=== PATIENT | female | born 1970 | race Caucasian/White ===

== ENCOUNTER → 2018-11-18 09:35 | Outpatient (CLI) | payer MEDICARE, MEDICAID, SELFPAY ==
--- NOTE | 2018-11-18 09:46 | XR_ITS ---
XR chest 2V HISTORY: Follow-up pneumonia ITS.REASON: S/P PNEUMONIA, COPD, HTN, EDEMA ORDERING PHYSICIAN: Torito Awan PATIENT AGE: 47 years COMPARISON: 04/21/2018 FINDINGS: The cardiomediastinal silhouette and pulmonary vascularity are within normal limits. There are atelectatic changes in the left lower lobe. The previously noted nodular opacity in the left upper lobe is not apparent on today's exam. There remains some atelectatic changes within the lingula. The right lung clear. Project over the right lower hemithorax. No acute bony findings. IMPRESSION: Chronic atelectatic or fibrotic changes in the lingula.
[2018-11-18 10:05] LABS: Basophils # 0.1 K/mm3 (0-0.2); Eosinophils # 0.2 K/mm3 (0.0-0.4); Eosinophils % 3.4 % (0.1-12.0); Hematocrit 39.4 % (37.0-47.0); Hemoglobin 12.3 g/dL (12.2-16.2); Lymphocytes # 2.5 K/mm3 (0.7-4.5); Lymphocytes % 42.4 % (10-50); Mean Corpuscular HGB Conc 31.4 g/dL (31.8-35.4); Mean Corpuscular Hemoglobin 27.6 pg (27.0-31.2); Mean Platelet Volume 7.5 fl (7.4-10.4); Monocytes # 0.4 K/mm3 (0.1-1.0); Monocytes % 6.7 % (1.7-9.3); Neutrophils # 2.8 K/mm3 (1.8-7.8); Neutrophils % 46.5 % (37.0-80.0); Platelet Count 298 K/mm3 (142-424); Red Blood Count 4.47 M/mm3 (4.20-5.40); White Blood Count 5.9 K/mm3 (4.8-10.8)
[2018-11-18 11:29] LABS: Alanine Aminotransferase 29 U/L (12-78); Albumin Level 3.7 gm/dL (3.4-5.0); Alkaline Phosphatase 116 U/L (46-116); Anion Gap 11.3 mEq/L (5-15); Aspartate Amino Transferase 37 U/L (15-37); Bilirubin,Total 0.4 mg/dL (0.2-1.0); Blood Urea Nitrogen 6 mg/dL (7-18); Calcium 9.2 mg/dL (8.5-10.1); Carbon Dioxide 30 mmol/L (21.0-32.0); Chloride 103 mmol/L (98-107); Chol/HDL Ratio 2.4 (1-3.5); Cholesterol 168 mg/dL (140-200); Creatinine,Serum 0.83 mg/dL (0.55-1.02); Estimated Glomerular Filt Rate 73 ml/min (>60); GFR (African American) 89 ML/MIN (>60); Globulin 3.8 gm/dl (1.3-3.2); Glucose 95 mg/dL (74-106); HDL Cholesterol 70 mg/dL (29-89); LDL Cholesterol 82 mg/dL (0-130); Potassium 4.3 mmoL/L (3.5-5.1); Sodium 140 mmol/L (136-145); Total Protein,Serum 7.5 gm/dL (6.4-8.2); Triglycerides 79 mg/dL (30-200); VLDL Cholesterol 16 mg/dL (0-40)
== END ==
PROVIDERS: PCP Internal Medicine; Visit Provider Internal Medicine
DX: J18.9 Pneumonia, unspecified organism (principal); J44.9 Chronic obstructive pulmonary disease, unspecified; I10 Essential (primary) hypertension; R60.9 Edema, unspecified; E78.5 Hyperlipidemia, unspecified; F17.210 Nicotine dependence, cigarettes, uncomplicated
CPT/HCPCS: 36415; 71046; 80053; 80061; 84443; 85025

== ENCOUNTER → 2018-11-21 09:26 | Outpatient (CLI) | payer MEDICARE, MEDICAID, SELFPAY | PROVIDERS: PCP Internal Medicine; Visit Provider Internal Medicine | DX: J44.9 Chronic obstructive pulmonary disease, unspecified (principal) | CPT/HCPCS: 94618 ==

== ENCOUNTER 2020-09-13 12:34 | Inpatient (IN) | payer MEDICARE, OTHER, SELFPAY ==
[2020-09-13] VITALS (23 sets, daily range): BP systolic 63–120; BP diastolic 38–97; PULSE 59–114; RESP 10–30; TEMP 36.4–37.3; O2SAT 84–99; BMI 38.7; BMI 42.3
--- NOTE | 2020-09-13 | ECG_ITS ---
APPROVED REPORT Exam: Resting ECG HR:101 bpm ECG Measurements Heart Rate 101 AXES HI 152 P 65 QRSd 92 QRS 45 QT 344 T 71 QTc 446 Conclusion Sinus tachycardia Otherwise normal ECG Electronically signed by : Chin Willard, 09/14/2020 22:01:24
--- NOTE | 2020-09-13 12:53 | XR_ITS ---
PROCEDURE: XR CHEST PORTABLE CLINICAL HISTORY: SOB COMPARISON: CR CXR CHEST(2 VIEWS-NOT PORTABLE) from 04/07/2014 CR CXR2V XR chest 2V from 04/21/2018 FINDINGS: The cardiomediastinal silhouette and pulmonary vascularity are within normal limits. Patchy density is present in both mid lower lung zones consistent with bilateral lower lobe pneumonia No acute bony abnormalities. Surgical clips noted overlying the right lower lung zone medially IMPRESSION: Bilateral lower lobe pneumonia. Dictated by: Edmond Keene MD 09/13/2020 13:33 Edmond Keene MD in [place] 09/13/2020 13:33
[2020-09-13 13:16] LABS: Basophils % 0.1 % (0.1-2.0); Eosinophils % 0.3 % (0.1-12.0); Hematocrit 38.4 % (37.0-47.0); Hemoglobin 12.6 g/dL (12.2-16.2); Lymphocytes # 1.6 K/mm3 (0.7-4.5); Lymphocytes % 11.6 % (10-50); Mean Corpuscular HGB Conc 32.8 g/dL (31.8-35.4); Mean Corpuscular Hemoglobin 28.7 pg (27.0-31.2); Mean Corpuscular Volume 87.4 fl (81-99); Mean Platelet Volume 9.7 fl (7.4-10.4); Monocytes # 0.5 K/mm3 (0.1-1.0); Monocytes % 4.1 % (1.7-9.3); Neutrophils # 11.1 K/mm3 (1.8-7.8); Neutrophils % 83.9 % (37.0-80.0); Platelet Count 191 K/mm3 (142-424); Red Blood Count 4.39 M/mm3 (4.20-5.40); Red Cell Distribution Width 14.8 % (11.5-17.5); White Blood Count 13.3 K/mm3 (4.8-10.8)
[2020-09-13 13:19] LABS: Lactic Acid 0.9 mmol/L (0.7-2.1); Sodium 128 mmol/L (136-145)
[2020-09-13 13:20] LABS: Blood Urea Nitrogen 50 mg/dl (7-17); Calcium 8.5 mg/dl (8.4-10.2); Carbon Dioxide 22 mmol/L (22.0-30.0); Chloride 95 mmol/L (98-107); Creatinine Clearance Estimated 22 mL/min (50-200); Estimated Glomerular Filt Rate 10 ml/min (>60); GFR (African American) 12 ML/MIN (>60); Glucose 95 mg/dl (74-100)
--- NOTE | 2020-09-13 13:26 | PC.NURSE ---
notified ER of critical creatinine
[2020-09-13 13:41] LABS: Troponin I < 0.01 ng/ml (0.00-0.034)
--- NOTE | 2020-09-13 13:48 | CT_ITS ---
PROCEDURE INFORMATION: Exam: CT Abdomen And Pelvis Without Contrast Exam date and time: 09/13/2020 1:48 PM Age: 49 years old Clinical indication: Abdominal pain; Generalized; Prior surgery; Additional info: Renal failure TECHNIQUE: Imaging protocol: Computed tomography of the abdomen and pelvis without contrast. Radiation optimization: All CT scans at this facility use at least one of these dose optimization techniques: automated exposure control; mA and/or kV adjustment per patient size (includes targeted exams where dose is matched to clinical indication); or iterative reconstruction. COMPARISON: No relevant prior studies available. FINDINGS: Lungs: There are ground-glass opacities in the visualized lung bases many of which demonstrate interlobular septal thickening. Liver: The unenhanced liver is unremarkable. Gallbladder and bile ducts: No ductal dilation. No radiopaque gallstones. Pancreas: Unremarkable. Spleen: No splenomegaly. Splenic densities likely represent calcified granulomas. Adrenal glands: No adrenal nodule. Kidneys and ureters: No hydronephrosis or calculi. Stomach and bowel: The unopacified bowel is unremarkable. No obstruction. Appendix: No evidence of appendicitis. Intraperitoneal space: No free air or fluid. No focal fluid collection. Vasculature: The abdominal aorta is normal in caliber. Lymph nodes: No lymphadenopathy. Urinary bladder: Unremarkable as visualized. Reproductive: Unremarkable as visualized. Bones/joints: No acute fracture. There are mild degenerative changes of the spine as well as posterior fixation hardware at L4-L5. Soft tissues: There is a small fat containing umbilical hernia. IMPRESSION: 1. No acute inflammatory process in the abdomen or pelvis. 2. Ground-glass opacities in the visualized lung bases with scattered areas of interlobular septal thickening. Imaging features can be seen with COVID-19 pneumonia, though are nonspecific and can occur with a variety of infectious and noninfectious processes. (Reference: Jose Angel) REFERENCES: Jose Angel Meyers, et al., Radiological Society of [place] Expert Consensus Statement on Reporting Chest CT Findings Related to COVID-19. Endorsed by the Society of Thoracic Radiology, the [place] [employer], and RSNA. Published July 02, 2019.
--- NOTE | 2020-09-13 13:57 | PC.NURSE ---
notified rad of ct order
[2020-09-13 14:00] LABS: ABG Base Excess -6.7 mmol/L (-2.4-2.3); ABG Oxygen Saturation 90 % (90-100); ABG PCO2 43.8 mmhg (35.0-45.0); ABG PH 7.28 mmol/L (7.35-7.45); ABG PO2 60.6 mmhg (80-100); ABG TCO2 21.4 mmhg (23-27)
[2020-09-13 14:01] LABS: Allen's Test Acceptable; Source Right Radial
[2020-09-13 14:02] LABS: Oxygen 3 LPM NC %
--- NOTE | 2020-09-13 14:02 | HMH.EDGENADL ---
ED Disposition Clinical Impression: Acute exacerbation of chronic obstructive airways disease, Septic shock Acute renal failure Qualifiers: Acute renal failure type: unspecified Qualified Code(s): N17.9 - Acute kidney failure, unspecified Bilateral pneumonia Qualifiers: Pneumonia type: due to unspecified organism Lung location: lower lobe of lung Qualified Code(s): J18.9 - Pneumonia, unspecified organism Disposition: Admitted As Inpatient Condition on Discharge: Critical Referrals: Torito Awan [Primary Care Provider] - - Critical Care Critical Care Time: Yes Attestation: On 09/13/20, the high probability of a clinically significant, sudden or life threatening deterioration of the following system(s) required my full and direct attention, intervention and personal management. The time I documented below is in addition to time spent performing reported procedures but includes the following listed in this critical care notation. Total Critical Care Time: 45 Vital system(s) involved:: Circulatory Failure, Metabolic Failure, Respiratory Failure, Renal Failure, Shock (Septic) My critical care processes included: Assessment & monitoring of V/S, Initial and Re-exams, Data Review/Interpretation, Coordinating Care, Medication Orders and management, Documentation Medical Decision Making - Medical Records Medical records reviewed: Yes: I reviewed the patient's medical records. - Durga Inquiry Pt receiving controlled substance: No Vital Signs: 09/13/20 12:35 09/13/20 13:30 09/13/20 13:32 Temperature 99.2 F Temperature Source Oral Pulse Rate 96 H 94 H Pulse Rate [Radial] 114 H Respiratory Rate 30 H 18 Blood Pressure 81/51 L 81/46 L Blood Pressure [Right Arm] 101/64 L Blood Pressure Mean [Right Arm] 76 Blood Pressure Source Blood Pressure Position Blood Pressure Position [Right Arm] Sitting 02 Sat by Pulse Oximetry 84 L 96 95 Oxygen Delivery Method Room Air Nasal Cannula Oxygen Flow Rate (LPM) 4 09/13/20 14:00 09/13/20 14:18 09/13/20 14:30 Temperature Temperature Source Pulse Rate 90 91 H 91 H Pulse Rate [Radial] Respiratory Rate 16 18 Blood Pressure 69/40 L 76/46 L 63/38 L Blood Pressure [Right Arm] Blood Pressure Mean [Right Arm] Blood Pressure Source Manual Cuff/ Auscultation Blood Pressure Position Blood Pressure Position [Right Arm] 02 Sat by Pulse Oximetry 93 L 94 L 93 L Oxygen Delivery Method Nasal Cannula Oxygen Flow Rate (LPM) 4 09/13/20 15:00 09/13/20 15:30 09/13/20 16:20 Temperature Temperature Source Pulse Rate 88 92 H 81 Pulse Rate [Radial] Respiratory Rate 20 18 16 Blood Pressure 81/41 L 112/97 H 93/57 L Blood Pressure [Right Arm] Blood Pressure Mean [Right Arm] Blood Pressure Source Blood Pressure Position Blood Pressure Position [Right Arm] 02 Sat by Pulse Oximetry 92 L 92 L 97 Oxygen Delivery Method Oxygen Flow Rate (LPM) 09/13/20 18:19 09/13/20 18:40 09/13/20 19:09 Temperature Temperature Source Pulse Rate 59 L 80 69 Pulse Rate [Radial] Respiratory Rate 18 Blood Pressure 100/53 L 104/63 L 117/60 Blood Pressure [Right Arm] Blood Pressure Mean [Right Arm] Blood Pressure Source Blood Pressure Position Sitting Sitting Blood Pressure Position [Right Arm] 02 Sat by Pulse Oximetry 97 98 94 L Oxygen Delivery Method Nasal Cannula Nasal Cannula Oxygen Flow Rate (LPM) 4 4 - Lab Data Lab Results 09/13/20 12:55: WBC 13.3 H, RBC 4.39, Hgb 12.6, Hct 38.4, MCV 87.4, MCH 28.7, MCHC 32.8, RDW 14.8, Plt Count 191, MPV 9.7, Neut % (Auto) 83.9 H, Lymph % (Auto) 11.6, [place] % (Auto) 4.1, Eos % (Auto) 0.3, Baso % (Auto) 0.1, Neut # (Auto) 11.1 H, Lymph # (Auto) 1.6, [place] # (Auto) 0.5, Eos # (Auto) 0.0, Baso # (Auto) 0.0 09/13/20 12:55: Sodium 128 L, Potassium 4.0, Chloride 95 L, Carbon Dioxide 22, Anion Gap 15.0, BUN 50 H, Creatinine 4.70 H, Estimated Creat Clear 22, Estimated GFR
--- NOTE | 2020-09-13 14:12 | PC.NURSE ---
primary nurse starting a second IV on pt at this time r/t low bp. She has notified ER MD of pt bp. Primary nurse asked rad staff to wait to take pt to CT r/t low bp. no new orders from ER MD at this time
[2020-09-13 15:02] LABS: Acetaminophen < 10 ug/ml (10-30); Salicylate < 1.0 mg/dL (2.0-20.0)
[2020-09-13 15:03] LABS: Ethyl Alcohol < 10 mg/dl (0-10)
[2020-09-13 15:24] LABS: Alanine Aminotransferase 23 U/L (12-78); Albumin Level 4.3 g/dl (3.5-5.0); Alkaline Phosphatase 125 U/L (38-126); Aspartate Amino Transferase 69 U/L (14-36); Bilirubin,Direct 0.7 mg/dl (0.0-0.4); Bilirubin,Total 0.7 mg/dl (0.2-1.3); Total Protein,Serum 7.7 g/dl (6.3-8.2)
--- NOTE | 2020-09-13 15:34 | PC.NURSE ---
FRIEND AT BEDSIDE PT AWAKE TALKING WITH FRIEND.
[2020-09-13 16:55] LABS: Microscopic, Urine URINE MICROSCOPIC (MICROSCOPIC)
[2020-09-13 17:21] LABS: Benzodiazepines Screen,Urine Negative ng/ml (<200)
[2020-09-13 17:22] LABS: Amphetamine/Metha Screen,Urine Negative ng/ml (<1000)
[2020-09-13 17:23] LABS: Barbiturates Screen,Urine Negative ng/ml (<200); Methadone Screen,Urine Negative ng/ml (<300)
[2020-09-13 17:24] LABS: Cannabinoid Screen,Urine Negative ng/ml (<50); Cocaine Screen,Urine Negative ng/ml (<300)
[2020-09-13 17:25] LABS: Opiate Screen,Urine Negative ng/ml (<300)
[2020-09-13 17:26] LABS: Phencyclidine Screen,Urine Negative ng/ml (<25)
[2020-09-13 17:41] LABS: Appearance,Urine CLEAR (Clear); Bilirubin,Urine Negative (Negative); Blood, Urine TRACE-L (Negative); Color,Urine YELLOW (Yellow); Glucose,Urine (UA) Negative (Negative); Ketones,Urine Negative (Negative); Leukocyte Esterase,Urine Negative (Negative); Nitrate,Urine Negative (Negative); PH,Urine 5.5 (5.0-8.5); Protein,Urine TRACE (Negative); Urobilinogen,Urine 0.2 EU/dl (0.2)
--- NOTE | 2020-09-13 17:58 | PC.NURSE ---
CALL LAB APPROX 60MINS MORE FOR NASAL SWAB
[2020-09-13 18:09] LABS: Bacteria,Urine 1+ /lpf
--- NOTE | 2020-09-13 18:15 | PC.NURSE ---
Paged assistant professor of communication Collin
--- NOTE | 2020-09-13 18:15 | PC.NURSE ---
DR GILMAN CALLED SPOKE WITH REGARDING POSS ADMISSION, [facility] IS ON DIVERSION.
--- NOTE | 2020-09-13 18:19 | PC.NURSE ---
Dr.Mulberry gibson who is cost control supervisor for service pts at this time.
--- NOTE | 2020-09-13 18:19 | PC.NURSE ---
LEVOPHED DRIP INCREASED TO 4MCG/MIN
--- NOTE | 2020-09-13 18:39 | PC.NURSE ---
DR NEVILLE REPAGED
--- NOTE | 2020-09-13 18:54 | PC.NURSE ---
TEST BAKER INFORMED OF PAGE TO DR NEVILLE.
--- NOTE | 2020-09-13 19:10 | PC.NURSE ---
DR JARA RETURNED CALL
--- NOTE | 2020-09-13 19:14 | PC.NURSE ---
called lab requesting an estimated time of completion for covid swab, and Rubens from lab said that it was getting pulled off of the analyzer at 191. message relayed to
--- NOTE | 2020-09-13 20:03 | PC.NURSE ---
called to give report/had been told she was ready for admit.pt not in system. called dope dry house operator. she will call me back
--- NOTE | 2020-09-13 21:17 | PC.NURSE ---
patient up to floor via wheelchair.
[2020-09-14] VITALS (15 sets, daily range): BP systolic 92–122; BP diastolic 55–72; PULSE 60–90; RESP 16–20; TEMP 36.6–36.9; O2SAT 89–99; BMI 42.3
--- NOTE | 2020-09-14 00:47 | PC.NURSE ---
Patient left O2 tank in the ED and a tech from this floor brought it up and placed in patient's room.
--- NOTE | 2020-09-14 02:00 | PC.NURSE ---
Reassessed Patient's B/P 98/60 Manual MAP 73 HR 71. Will continue to monitor for any acute changes.
--- NOTE | 2020-09-14 04:26 | PC.NURSE ---
Patient admitted to the floor at 2116 for Septic Shock, PNA and COPD Exacerbation. Patient has multi-organ dysfunction, Boluses and ABx administered in the ED and Levophed as well for Hypotension. VSS this shift with patient MAP above 60 and Systolic in the high to mid 90's. SpO2 between 91 and 95 on 4 L n/c. Patient drowsy, however, oriented times four. Patient administered Doxycycline this shift and maintenance of LR 125 ml/hr. Patient voided times 1 450 ml. Will continue to monitor for any acute changes.
--- NOTE | 2020-09-14 08:48 | HMH.HP ---
*Admission Date: 09/13/20 *Chief complaint: Shortness of breath *History of present illness: Ms Alfredo Keith is a 49-year-old female with a history of oxygen dependent COPD, frequent pneumonia, previous drug abuse on Suboxone and fibromyalgia who presented to the emergency department with multiple complaints. The patient states that she has been feeling rundown and out of energy for the last few days since returning home from vacationing at [place], [place] with her family.. She has had some worsening shortness of breath and cough for the last 2 days. Patient also describes some nausea and diarrhea and has not been able to eat and drink as usual. She denies any focal abdominal discomfort. She has had some headache and neck and back pain. She attributes this to her fibromyalgia. She denies fevers or chills. She has been unable to perform her normal daily tasks of living secondary to her lethargic. On presentation to the emergency room patient appeared quite sick. Patient was noted to be hypoxic on room air. She was also felt to be in a metabolic acidosis. White blood cell count was 13,300 with 83.9% neutrophils. Hemoglobin was 12.6 and hematocrit 38.4. Blood chemistries revealed a sodium of 128 potassium of 4. BUN was 50 and creatinine of 4.7 with estimated creatinine clearance of 22 and GFR of 10. Liver function studies revealed elevated AST at 69. Troponin I was normal. Chest x-ray revealed bilateral lower lobe pneumonia. She was resuscitated with IV fluids and started on ceftriaxone and doxycycline. She was also started on a Levophed drip when blood pressure did not respond to fluid boluses. She received DuoNeb treatments and 125 mg of Solu-Medrol. She was also found to be in acute renal failure. Patient was noted to be taking about 2400 mg of ibuprofen daily for chronic pain. This a.m. patient states she might be a little bit better. She feels her breathing has improved. She states she did rest. She describes some left anterior chest discomfort and pain on deep inspiration. Blood pressure this morning is 105/72. Levophed drip has been discontinued. O2 sats are 92% with nasal oxygen at 4 L/min. She is afebrile. [facility] History Medical History: Reports:: Hypertension Denies:: Diabetes Mellitus Type 1, Diabetes Mellitus Type 2, Gastroesophageal Reflux Disease(GERD) *Have you ever received a pneumonia vaccine?: No *Have you received a flu vaccine this season?: Yes Other Medical History: Reports: Fibromyalgia, Liver Disease Laterality Cases: Bilateral: Carpal Tunnel Release Other Surgeries: Yes: Appendectomy, Comment: Back and neck surgery - *Social History Last grade of school completed: High school graduate Smoking Status: Current every day smoker Tobacco Type: e-cigarettes # Packs/Day (cigarettes): 1 Alcohol Intake: never Substance Use Type: opiates *Occupational Status:: disabled Housing: house Household Members: family *Travel in the last 8 weeks: Inside the [facility] Family Hx:: Cancer, Coronary Artery Disease, Diabetes Review of Systems - Constitutional Reports lack of energy, Denies chills, Denies fever(s) - Eyes Reports change in vision - ENT Reports headache(s), Reports nasal congestion, Reports nasal discharge, Reports neck pain, Reports post nasal drip, Reports sore throat, Denies ear pain - *Cardiovascular Reports chest pain, Reports shortness of breath, Reports leg swelling Comments: Palpitations - *Respiratory Reports chest congestion, Reports cough, Reports shortness of breath, Reports coughing up blood, Reports pain with cough, Reports wheezing - *Gastrointestinal Reports loose stools, Reports nausea, Denies abdominal pain, Denies bright, red blood in stools, Denies vomiting - *Genitourinary Denies difficulty urinating - *Musculoskeletal Reports joint pain, Reports back pain, Reports neck pain - *Neurologic Reports headache(s), Reports weakness, Denies seizure
--- NOTE | 2020-09-14 08:48 | HMH.PHAVTE ---
[facility] Pharmacy VTE Monitoring - Patient Demographics Admission date: 09/13/20 Report Date: 09/14/20 Time: 08:48 Allergies/Adverse Reactions: Patient Allergies levofloxacin [From LEVAQUIN] Allergy (Unknown, Verified 04/21/18 16:28) Height: 1.6 m Weight: 108.493 kg Patient Problems: Current Active Problems Acute exacerbation of chronic obstructive airways disease (Acute) Acute renal failure (Acute) Septic shock (Acute) Bilateral pneumonia (Acute) - VTE Risk Labs: VTE Related Lab Results Hgb 12.6 g/dL (12.2-16.2) 09/13/20 12:55 Hct 38.4 % (37.0-47.0) 09/13/20 12:55 Plt Count 191 K/mm3 (142-424) 09/13/20 12:55 BUN 50 mg/dl (7-17) H 09/13/20 12:55 Creatinine 4.70 mg/dl (0.52-1.04) H 09/13/20 12:55 Estimated Creat Clear 22 mL/min (50-200) 09/13/20 12:55 Was VTE Risk Assessment Performed: Yes VTE Score: 5 VTE Risk Level: Low Risk Clinical Trial Participant: No - Prophylaxis VTE Prophylaxis Ordered?: Yes Types of VTE Prophylaxis: Pharmacological Pharmacologic Type: Enoxaparin
--- NOTE | 2020-09-14 09:40 | PC.NURSE ---
Received report from ANNABELLA JosephRN @ 2071, assumed care of pt @ this time.
--- NOTE | 2020-09-14 10:23 | PC.NURSE ---
Pt refused duoneb treatment, pt educated on importance of breathing treatments, pt tearful and uncooperative w/ staff continuing to refuse. No needs voiced @ this time. Call carmelita w/in reach.
--- NOTE | 2020-09-14 10:28 | PC.NURSE ---
Pt refused HHN tx. She states she has medicine under her tongue and shouldn't even be talking at this time. I explained to Pt she can take treatment with a mask and she begins to get tearful and says she needs to get out of this hospital and she has never dealt with such attitudes. I apologized to the patient for her feeling that way. She states she needs to be transferred, I told patient I will let her Nurse know of her feelings and our conversation. Pt states, Okay! in a very hateful manner. This POLE PEELING MACHINE OPERATOR HELPER left the room. Discussed conversation with RN and Sarah, Nurse Chemical Tester.
[2020-09-14 12:34] LABS: Eosinophils # 0.1 K/mm3 (0.0-0.4); Eosinophils % 0.4 % (0.1-12.0); Hematocrit 34.4 % (37.0-47.0); Hemoglobin 11.5 g/dL (12.2-16.2); Lymphocytes # 0.5 K/mm3 (0.7-4.5); Lymphocytes % 4.4 % (10-50); Mean Corpuscular HGB Conc 33.5 g/dL (31.8-35.4); Mean Corpuscular Hemoglobin 29.3 pg (27.0-31.2); Mean Corpuscular Volume 87.3 fl (81-99); Mean Platelet Volume 9.4 fl (7.4-10.4); Monocytes # 0.4 K/mm3 (0.1-1.0); Neutrophils # 10.8 K/mm3 (1.8-7.8); Neutrophils % 92.1 % (37.0-80.0); Platelet Count 167 K/mm3 (142-424); Red Blood Count 3.94 M/mm3 (4.20-5.40); White Blood Count 11.8 K/mm3 (4.8-10.8)
[2020-09-14 12:38] LABS: MANUAL DIFFERENTIAL MANUAL DIFFERENTIAL (MANUAL DIFF)
[2020-09-14 12:51] LABS: Chloride 107 mmol/L (98-107)
[2020-09-14 12:52] LABS: Potassium 4.6 mmoL/L (3.5-5.1); Sodium 135 mmol/L (136-145)
[2020-09-14 12:54] LABS: Alanine Aminotransferase 17 U/L (12-78); Alkaline Phosphatase 103 U/L (38-126); Aspartate Amino Transferase 47 U/L (14-36); Bilirubin,Total 0.7 mg/dl (0.2-1.3); Blood Urea Nitrogen 39 mg/dl (7-17); Creatinine Clearance Estimated 41 mL/min (50-200); Estimated Glomerular Filt Rate 43 ml/min (>60); GFR (African American) 52 ML/MIN (>60)
[2020-09-14 12:55] LABS: Albumin Level 3.5 g/dl (3.5-5.0); Albumin/Globulin Ratio 1.1 (1.1-1.8); Anion Gap 8.6 mEq/L (5-15); Calcium 8.9 mg/dl (8.4-10.2); Carbon Dioxide 24 mmol/L (22.0-30.0); Globulin 3.2 g/dL (1.3-3.2); Glucose 87 mg/dl (74-100); Total Protein,Serum 6.7 g/dl (6.3-8.2)
[2020-09-14 13:44] LABS: Lymphocytes % 3 % (10-50); Monocytes % 1 % (2-9); Neutrophils % 94 % (42-76); Total Cells Counted 100
[2020-09-14 13:46] LABS: Platelet Estimate Normal; RBC Morphology Normal
--- NOTE | 2020-09-14 18:34 | PC.NURSE ---
No concerns voiced by pt this afternoon. She has rested @ intervals. Remains on 4 L O2 per nasal cannula. Denies being SOA. Independent w/ ADL's. Voiding w/o difficulty per BSC. No BM this shift. Currently sitting up in bed watching TV.
--- NOTE | 2020-09-14 19:34 | PC.NURSE ---
changed pt to 35% venti mask. pt sats were 86% on 4lpm n/c
[2020-09-15] VITALS (14 sets, daily range): BP systolic 117–154; BP diastolic 63–92; PULSE 60–90; RESP 16–20; TEMP 36.5–37.6; O2SAT 90–97
--- NOTE | 2020-09-15 01:25 | PC.NURSE ---
left sputum cup at bedside instructed pt to cough. pt unable to cough at this time.
--- NOTE | 2020-09-15 06:43 | PC.NURSE ---
Assessment of SpO2 for this patient is hovering between 86, 87 and 88% on 4 Liters. Advised respirtory and she stated she would come to see patient as soon as possible.
--- NOTE | 2020-09-15 08:14 | HMH.ACPN2 ---
<Diana Mora - Last Filed: 09/15/20 08:14> Internal Medicine - PN: Subj *Date: 09/15/20 *Time: 08:14 Interval history: Patient states she still feels poorly today. She is wheezing and she is complaining of back pain when breathing. She states she does not feel like eating her breakfast. According to nursing notes she has been uncooperative with the staff has refused numerous medications and DuoNeb treatments. Exam Vital signs and Labs for Last 24 Hours: Temp Pulse Resp BP Pulse Ox 97.7 F 77 20 126/63 96 09/15/20 07:52 09/15/20 07:52 09/15/20 07:52 09/15/20 07:52 09/15/20 07:52 Laboratory Results - last 24 hr 09/14/20 12:20: WBC 11.8 H, RBC 3.94 L, Hgb 11.5 L, Hct 34.4 L, MCV 87.3, MCH 29.3, MCHC 33.5, RDW 15.0, Plt Count 167, MPV 9.4, Neut % (Auto) 92.1 H, Lymph % (Auto) 4.4 L, [place] % (Auto) 3.0, Eos % (Auto) 0.4, Baso % (Auto) 0.0 L, Neut # (Auto) 10.8 H, Lymph # (Auto) 0.5 L, [place] # (Auto) 0.4, Eos # (Auto) 0.1, Baso # (Auto) 0.0, Total Counted 100, Neutrophils % (Manual) 94 H, Band Neutrophils % 2.0, Lymphocytes % (Manual) 3 L, Monocytes % (Manual) 1 L, Platelet Estimate Normal, RBC Morphology Normal 09/14/20 12:20: Sodium 135 L, Potassium 4.6, Chloride 107, Carbon Dioxide 24, Anion Gap 8.6, BUN 39 H, Creatinine 1.30 H D, Estimated Creat Clear 41, Estimated GFR 43 L, Est GFR ( Amer) 52 L D, Glucose 87, Calcium 8.9, Phosphorus 4.0, Magnesium 2.0, Total Bilirubin 0.7, AST 47 H D, ALT 17 D, Alkaline Phosphatase 103, Total Protein 6.7, Albumin 3.5 D, Globulin 3.2, Albumin/Globulin Ratio 1.1 I & O for Last 24 hours: Intake & Output 09/12/20 09/13/20 09/14/20 09/15/20 11:59 11:59 11:59 11:59 Intake Total 3250 / 3250 2945 / 2945 Output Total 1550 / 1550 1700 / 1700 Balance 1700 / 1700 1245 / 1245 Weight 239 lb 2.986 oz - Constitutional no acute distress - *Routine Respiratory Exam Present: decreased breath sounds, wheezes - *Routine Cardiovascular Exam Present: RRR - *Routine Abdominal Exam Present: soft, normoactive bowel sounds, tenderness (epigastric) - *Routine Extremities Exam Absent: cyanosis, clubbing, edema - *Routine Skin Exam Present: warm. Absent: rash - *Routine Neurological Exam Present: alert, oriented X3 Assessment and Plan (1) Depression Status: Chronic Category: Medical Code(s): F32.9 - Major depressive disorder, single episode, unspecified (2) Fibromyalgia Status: Chronic Category: Medical Code(s): M79.7 - Fibromyalgia (3) Acute exacerbation of chronic obstructive airways disease Status: Acute Category: Medical Code(s): J44.1 - Chronic obstructive pulmonary disease with (acute) exacerbation (4) Acute renal failure Status: Acute Qualifiers: Acute renal failure type: unspecified Qualified Code(s): N17.9 - Acute kidney failure, unspecified Category: Medical Code(s): N17.9 - Acute kidney failure, unspecified (5) Bilateral pneumonia Status: Acute Qualifiers: Pneumonia type: due to unspecified organism Lung location: lower lobe of lung Qualified Code(s): J18.9 - Pneumonia, unspecified organism Category: Medical Code(s): J18.9 - Pneumonia, unspecified organism (6) Septic shock Status: Acute Category: Medical Code(s): A41.9 - Sepsis, unspecified organism; R65.21 - Severe sepsis with septic shock - Assessment and plan all Dx Assessment and Plan for all problems:: White blood cell count has improved. Renal function has improved significantly. Blood cultures are still pending. Will discuss further care with Dr. Pal. <John Pal - Last Filed: 09/15/20 08:30> Internal Medicine - PN: Subj *Date: 09/15/20 *Time: 08:29 Exam Vital signs and Labs for Last 24 Hours: Temp Pulse Resp BP Pulse Ox 97.7 F 77 20 126/63 96 09/15/20 07:52 09/15/20 07:52 09/15/20 07:52 09/15/20 07:52 09/15/20 07:52 Laboratory Results - last 24 hr 09/14/20 12:20: WBC 11
--- NOTE | 2020-09-15 18:26 | PC.NURSE ---
SHE IS AOX4, 4LNC O2 SUPPORT, HAS RESTED IN BED FOR MOST OF THE DAY, TOLERATED DIET WELL, DENIES N/V/D, NO NEEDS VOICED.
[2020-09-16] VITALS: BP 128/71; PULSE 65; PULSE 70; RESP 18; TEMP 36.9; O2SAT 92
[2020-09-16 04:00] VITALS: BP 133/76; PULSE 60; PULSE 65; RESP 17; TEMP 36.7; O2SAT 94
[2020-09-16 05:09] VITALS: BMI 43.4
[2020-09-16 05:35] LABS: Basophils % 0.2 % (0.1-2.0); Eosinophils # 0.1 K/mm3 (0.0-0.4); Eosinophils % 0.8 % (0.1-12.0); Hematocrit 38.4 % (37.0-47.0); Hemoglobin 12.7 g/dL (12.2-16.2); Lymphocytes # 0.5 K/mm3 (0.7-4.5); Lymphocytes % 6.6 % (10-50); Mean Corpuscular Hemoglobin 28.9 pg (27.0-31.2); Mean Corpuscular Volume 87.6 fl (81-99); Mean Platelet Volume 8.9 fl (7.4-10.4); Monocytes # 0.2 K/mm3 (0.1-1.0); Monocytes % 2.4 % (1.7-9.3); Neutrophils # 7.4 K/mm3 (1.8-7.8); Platelet Count 184 K/mm3 (142-424); Red Blood Count 4.39 M/mm3 (4.20-5.40); Red Cell Distribution Width 15.2 % (11.5-17.5); White Blood Count 8.2 K/mm3 (4.8-10.8)
[2020-09-16 05:39] LABS: MANUAL DIFFERENTIAL MANUAL DIFFERENTIAL (MANUAL DIFF)
[2020-09-16 05:47] LABS: Chloride 110 mmol/L (98-107); Potassium 4.6 mmoL/L (3.5-5.1); Sodium 139 mmol/L (136-145)
[2020-09-16 05:50] LABS: Anion Gap 7.6 mEq/L (5-15); Blood Urea Nitrogen 23 mg/dl (7-17); Carbon Dioxide 26 mmol/L (22.0-30.0); Creatinine Clearance Estimated 76 mL/min (50-200); Estimated Glomerular Filt Rate 89 ml/min (>60); GFR (African American) 107 ML/MIN (>60)
[2020-09-16 05:51] LABS: Calcium 9.3 mg/dl (8.4-10.2); Glucose 129 mg/dl (74-100)
--- NOTE | 2020-09-16 06:01 | PC.NURSE ---
pt has rested t/o shift, O2 decreased to 2.5 L with a sat of 94%, has had no complaints of SOA, voiding without difficulty, telemetry shows NSR
[2020-09-16 06:06] VITALS: PULSE 70; PULSE 74; O2SAT 94
[2020-09-16 06:13] LABS: Lymphocytes % 10 % (10-50); Neutrophils % 90 % (42-76); Total Cells Counted 100
[2020-09-16 06:14] LABS: Ovalocytes 1+; Platelet Estimate Normal
[2020-09-16 06:25] VITALS: O2SAT 94
[2020-09-16 08:00] VITALS: BP 157/92; PULSE 70; RESP 19; TEMP 36.6; O2SAT 93; O2SAT 97
--- NOTE | 2020-09-16 08:41 | HMH.ACPN2 ---
<iDana Mora - Last Filed: 09/16/20 08:41> Internal Medicine - PN: Subj *Date: 09/16/20 *Time: 08:41 Interval history: Patient does states she feels slightly better today. She still complains of back pain and a cough. She is still wheezing but this clears when she coughs. She has been taking her breathing treatments. She slept better last night. Oxygen has been weaned to 2.5 L. Exam Vital signs and Labs for Last 24 Hours: Temp Pulse Resp BP Pulse Ox 98.0 F 74 17 133/76 94 L 09/16/20 04:00 09/16/20 06:06 09/16/20 04:00 09/16/20 04:00 09/16/20 06:25 Laboratory Results - last 24 hr 09/16/20 05:29: WBC 8.2 D, RBC 4.39, Hgb 12.7, Hct 38.4, MCV 87.6, MCH 28.9, MCHC 33.0, RDW 15.2, Plt Count 184, MPV 8.9, Neut % (Auto) 90.0 H, Lymph % (Auto) 6.6 L, Harper % (Auto) 2.4, Eos % (Auto) 0.8, Baso % (Auto) 0.2, Neut # (Auto) 7.4, Lymph # (Auto) 0.5 L, Harper # (Auto) 0.2, Eos # (Auto) 0.1, Baso # (Auto) 0.0, Total Counted 100, Neutrophils % (Manual) 90 H, Lymphocytes % (Manual) 10, Platelet Estimate Normal, Ovalocytes 1+ 09/16/20 05:29: Sodium 139, Potassium 4.6, Chloride 110 H, Carbon Dioxide 26, Anion Gap 7.6, BUN 23 H D, Creatinine 0.70 D, Estimated Creat Clear 76, Estimated GFR 89, Est GFR ( Amer) 107 D, Glucose 129 H, Calcium 9.3 I & O for Last 24 hours: Intake & Output 09/13/20 09/14/20 09/15/20 09/16/20 11:59 11:59 11:59 11:59 Intake Total 3250 / 3250 3185 / 3185 720 / 720 Output Total 1550 / 1550 1950 / 1950 400 / 400 Balance 1700 / 1700 1235 / 1235 320 / 320 Weight 239 lb 2.986 oz 245 lb 7 oz Microbiology Reports for the Last 24 Hours: Microbiology 09/13/20 12:55 Blood Blood Culture - Preliminary NO GROWTH AFTER 48 HOURS 09/13/20 12:55 Blood Blood Culture - Preliminary NO GROWTH AFTER 48 HOURS - Constitutional no acute distress - *Routine Respiratory Exam Present: wheezes (Clears with cough). Absent: rales - *Routine Cardiovascular Exam Present: RRR - *Routine Abdominal Exam Present: soft, normoactive bowel sounds. Absent: tenderness - *Routine Extremities Exam Absent: cyanosis, clubbing, edema - *Routine Skin Exam Present: warm. Absent: rash - *Routine Neurological Exam Present: alert, oriented X3 Assessment and Plan (1) Depression Status: Chronic Category: Medical Code(s): F32.9 - Major depressive disorder, single episode, unspecified (2) Fibromyalgia Status: Chronic Category: Medical Code(s): M79.7 - Fibromyalgia (3) Acute exacerbation of chronic obstructive airways disease Status: Acute Category: Medical Code(s): J44.1 - Chronic obstructive pulmonary disease with (acute) exacerbation (4) Acute renal failure Status: Acute Qualifiers: Acute renal failure type: unspecified Qualified Code(s): N17.9 - Acute kidney failure, unspecified Category: Medical Code(s): N17.9 - Acute kidney failure, unspecified (5) Bilateral pneumonia Status: Acute Qualifiers: Pneumonia type: due to unspecified organism Lung location: lower lobe of lung Qualified Code(s): J18.9 - Pneumonia, unspecified organism Category: Medical Code(s): J18.9 - Pneumonia, unspecified organism (6) Septic shock Status: Acute Category: Medical Code(s): A41.9 - Sepsis, unspecified organism; R65.21 - Severe sepsis with septic shock - Assessment and plan all Dx Assessment and Plan for all problems:: Possible discharge home soon on oral antibiotics. Will discuss with Dr. Pal. <John Pal - Last Filed: 09/16/20 08:46> Internal Medicine - PN: Subj *Date: 09/16/20 *Time: 08:45 Exam Vital signs and Labs for Last 24 Hours: Temp Pulse Resp BP Pulse Ox 98.0 F 74 17 133/76 94 L 09/16/20 04:00 09/16/20 06:06 09/16/20 04:00 09/16/20 04:00 09/16/20 06:25 Laboratory Results - last 24 hr 09/16/20 05:29: WBC 8.2 D, RBC 4.39, Hgb 12.7, Hct
--- NOTE | 2020-09-16 14:37 | HMH.DCSUM ---
General - General Admission date:: 09/13/20 Discharge date: 09/16/20 HPI HPI: Ms Alfredo Keith is a 49-year-old female with a history of oxygen dependent COPD, frequent pneumonia, previous drug abuse on Suboxone and fibromyalgia who presented to the emergency department with multiple complaints. The patient states that she has been feeling rundown and out of energy for the last few days since returning home from vacationing at [place], [place] with her family.. She has had some worsening shortness of breath and cough for the last 2 days. Patient also describes some nausea and diarrhea and has not been able to eat and drink as usual. She denies any focal abdominal discomfort. She has had some headache and neck and back pain. She attributes this to her fibromyalgia. She denies fevers or chills. She has been unable to perform her normal daily tasks of living secondary to her lethargic. On presentation to the emergency room patient appeared quite sick. Patient was noted to be hypoxic on room air. She was also felt to be in a metabolic acidosis. White blood cell count was 13,300 with 83.9% neutrophils. Hemoglobin was 12.6 and hematocrit 38.4. Blood chemistries revealed a sodium of 128 potassium of 4. BUN was 50 and creatinine of 4.7 with estimated creatinine clearance of 22 and GFR of 10. Liver function studies revealed elevated AST at 69. Troponin I was normal. Chest x-ray revealed bilateral lower lobe pneumonia. She was resuscitated with IV fluids and started on ceftriaxone and doxycycline. She was also started on a Levophed drip when blood pressure did not respond to fluid boluses. She received DuoNeb treatments and 125 mg of Solu-Medrol. She was also found to be in acute renal failure. Patient was noted to be taking about 2400 mg of ibuprofen daily for chronic pain. This a.m. patient states she might be a little bit better. She feels her breathing has improved. She states she did rest. She describes some left anterior chest discomfort and pain on deep inspiration. Blood pressure this morning is 105/72. Levophed drip has been discontinued. O2 sats are 92% with nasal oxygen at 4 L/min. She is afebrile. Hospital Course Hospital Course: The patient was continued on IV antibiotics and IV fluids and scheduled duo nebs were ordered. She was also started on a low-dose of Solu-Medrol. Her abdominal/pelvic CT showed no acute inflammatory process in the abdomen or pelvis. She did have groundglass opacities in the lung bases with scattered areas of interlobar septal thickening. Her Covid test was negative. She continued to feel poorly and had some chest and back pain. She had some wheezing and a poor appetite. According to the nursing staff, she had been uncooperative and refused numerous medications along with DuoNeb treatments. Her white blood cell count did improve and her renal function improved significantly. She was satting at 97% on a Ventimask, therefore she was weaned to nasal cannula. By 09/16/2020, she felt better and her oxygen had been weaned to 2.5 L nasal cannula. Her white blood cell count normalized and her blood culture showed no growth. She was stable to be discharged home with oral antibiotics and steroids and will follow up with Dr. Awan. Objective Vital signs: Temp Pulse Resp BP Pulse Ox 98 F 70 19 157/92 H 93 L 09/16/20 08:00 09/16/20 08:00 09/16/20 08:00 09/16/20 08:00 09/16/20 08:00 Narrative: - Constitutional no acute distress Comments: Some dyspnea with extensive talking - *Routine HEENT Exam Head: Present: normocephalic, atraumatic Eye: Present: PERRL. Absent: conjunctival icterus, scleral injection ENT: Present: mucous membranes moist, oropharynx clear - *Routine Neck Exam Present: supple, full ROM. Absent: carotid bruit, lymphadenopathy, thyromegaly - *Routine Respiratory Exam Present: crackles (Mostly on the right) - *Routine Cardiova
== END 2020-09-16 12:30 | disposition home or self-care (01) | DRG 871 ==
LOC: ER 19:15 → 2ND 20:42
PROVIDERS: Admitting Provider Family Medicine; Emergency Provider Emergency Medicine; PCP Internal Medicine; Visit Provider Family Medicine
DX: A41.9 Sepsis, unspecified organism (principal); R65.21 Severe sepsis with septic shock; J18.9 Pneumonia, unspecified organism; J44.0 Chronic obstructive pulmonary disease with (acute) lower respiratory infection; J44.1 Chronic obstructive pulmonary disease with (acute) exacerbation; N17.9 Acute kidney failure, unspecified; E87.2 Acidosis; Z99.81 Dependence on supplemental oxygen; F17.210 Nicotine dependence, cigarettes, uncomplicated; Z88.1 Allergy status to other antibiotic agents; M79.7 Fibromyalgia; I10 Essential (primary) hypertension; F17.290 Nicotine dependence, other tobacco product, uncomplicated; F32.9 Major depressive disorder, single episode, unspecified; G89.29 Other chronic pain; Z20.822 Contact with and (suspected) exposure to COVID-19
CPT/HCPCS: 36415; 71045; 74176; 80048; 80053; 80076; 80305; 80329; 81001; 82803; 83605; 83735; 84100; 84484; 85007; 85025; 87040; 93005; 94640; 94760; 94761; 99282; J0574; U0003

== ENCOUNTER → 2020-09-21 16:15 | Outpatient (CLI) | payer MEDICARE, OTHER, SELFPAY ==
[2020-09-21 17:26] LABS: Chloride 104 mmol/L (98-107)
[2020-09-21 17:27] LABS: Potassium 3.6 mmoL/L (3.5-5.1); Sodium 139 mmol/L (136-145)
[2020-09-21 17:30] LABS: Blood Urea Nitrogen 12 mg/dl (7-17); Calcium 8.7 mg/dl (8.4-10.2); Estimated Glomerular Filt Rate 106 ml/min (>60); GFR (African American) 128 ML/MIN (>60); Glucose 86 mg/dl (74-100)
[2020-09-21 17:31] LABS: Anion Gap 9.6 mEq/L (5-15); Carbon Dioxide 29 mmol/L (22.0-30.0)
== END ==
PROVIDERS: Visit Provider Internal Medicine
DX: N17.9 Acute kidney failure, unspecified (principal)
CPT/HCPCS: 80048

== ENCOUNTER → 2021-12-27 16:57 | Outpatient (CLI) | payer MEDICARE, OTHER, SELFPAY ==
[2021-12-27 17:56] LABS: Basophils # 0.2 K/mm3 (0-0.2); Basophils % 2.2 % (0.1-2.0); Eosinophils # 0.2 K/mm3 (0.0-0.4); Eosinophils % 3.2 % (0.1-12.0); Hematocrit 38.8 % (37.0-47.0); Hemoglobin 13.3 g/dL (12.2-16.2); Lymphocytes # 2.8 K/mm3 (0.7-4.5); Lymphocytes % 39.5 % (10-50); Mean Corpuscular HGB Conc 34.2 g/dL (31.8-35.4); Mean Corpuscular Hemoglobin 30.4 pg (27.0-31.2); Mean Corpuscular Volume 89.1 fl (81-99); Mean Platelet Volume 20.3 fl (7.4-10.4); Monocytes # 0.4 K/mm3 (0.1-1.0); Monocytes % 6.1 % (1.7-9.3); Neutrophils # 3.6 K/mm3 (1.8-7.8); Neutrophils % 51.1 % (37.0-80.0); Platelet Count 231 K/mm3 (142-424); Red Blood Count 4.36 M/mm3 (4.20-5.40); Red Cell Distribution Width 15.8 % (11.5-17.5); White Blood Count 7.1 K/mm3 (4.8-10.8)
[2021-12-27 18:32] LABS: Chloride 99 mmol/L (98-107); Potassium 4.3 mmoL/L (3.5-5.1); Sodium 137 mmol/L (136-145)
[2021-12-27 18:34] LABS: Blood Urea Nitrogen 17 mg/dl (7-17); Estimated Glomerular Filt Rate 75 ml/min (>60); GFR (African American) 91 ML/MIN (>60)
[2021-12-27 18:35] LABS: Alanine Aminotransferase 11 U/L (12-78); Albumin Level 4.3 g/dl (3.5-5.0); Albumin/Globulin Ratio 1.4 (1.1-1.8); Alkaline Phosphatase 118 U/L (38-126); Anion Gap 13.3 mEq/L (5-15); Aspartate Amino Transferase 29 U/L (14-36); Calcium 9.1 mg/dl (8.4-10.2); Carbon Dioxide 29 mmol/L (22.0-30.0); Cholesterol 191 mg/dl (140-200); Glucose 94 mg/dl (74-100); Total Protein,Serum 7.3 g/dl (6.3-8.2); Triglycerides 57 mg/dl (30-150); VLDL Cholesterol 11 mg/dL (0-40)
[2021-12-27 18:36] LABS: Chol/HDL Ratio 2.4 (1-3.5); HDL Cholesterol 81 mg/dl (40-60)
[2021-12-27 18:37] LABS: Bilirubin,Total < 0.1 mg/dl (0.2-1.3)
[2021-12-27 18:46] LABS: Direct LDL Cholesterol 74.19 mg/dL (100-129)
== END ==
PROVIDERS: PCP Internal Medicine; Visit Provider Internal Medicine
DX: I10 Essential (primary) hypertension (principal); E78.5 Hyperlipidemia, unspecified; I87.2 Venous insufficiency (chronic) (peripheral); J44.9 Chronic obstructive pulmonary disease, unspecified; F33.1 Major depressive disorder, recurrent, moderate; E66.01 Morbid (severe) obesity due to excess calories; Z22.7 Latent tuberculosis
CPT/HCPCS: 80053; 80061; 85025

== ENCOUNTER → 2022-01-25 16:54 | Outpatient (CLI) | payer MEDICARE, OTHER, SELFPAY ==
[2022-01-25 17:30] LABS: Basophils # 0.1 K/mm3 (0-0.2); Basophils % 1.5 % (0.1-2.0); Eosinophils # 0.2 K/mm3 (0.0-0.4); Eosinophils % 2.7 % (0.1-12.0); Hematocrit 38.2 % (37.0-47.0); Hemoglobin 12.7 g/dL (12.2-16.2); Lymphocytes # 2.4 K/mm3 (0.7-4.5); Lymphocytes % 38.5 % (10-50); Mean Corpuscular HGB Conc 33.2 g/dL (31.8-35.4); Mean Corpuscular Hemoglobin 30.1 pg (27.0-31.2); Mean Corpuscular Volume 90.7 fl (81-99); Mean Platelet Volume 9.2 fl (7.4-10.4); Monocytes # 0.4 K/mm3 (0.1-1.0); Neutrophils # 3.2 K/mm3 (1.8-7.8); Neutrophils % 51.3 % (37.0-80.0); Platelet Count 271 K/mm3 (142-424); Red Blood Count 4.22 M/mm3 (4.20-5.40); Red Cell Distribution Width 13.9 % (11.5-17.5); White Blood Count 6.1 K/mm3 (4.8-10.8)
[2022-01-25 18:54] LABS: Alanine Aminotransferase 13 U/L (12-78); Albumin Level 4.2 g/dl (3.5-5.0); Albumin/Globulin Ratio 1.4 (1.1-1.8); Alkaline Phosphatase 129 U/L (38-126); Aspartate Amino Transferase 37 U/L (14-36); Bilirubin,Total 0.3 mg/dl (0.2-1.3); Blood Urea Nitrogen 7 mg/dl (7-17); Calcium 9.3 mg/dl (8.4-10.2); Carbon Dioxide 30 mmol/L (22.0-30.0); Chloride 99 mmol/L (98-107); Estimated Glomerular Filt Rate 75 ml/min (>60); GFR (African American) 91 ML/MIN (>60); Glucose 81 mg/dl (74-100); Sodium 140 mmol/L (136-145); Total Protein,Serum 7.2 g/dl (6.3-8.2)
== END ==
PROVIDERS: PCP Internal Medicine; Visit Provider Internal Medicine
DX: J44.1 Chronic obstructive pulmonary disease with (acute) exacerbation (principal); J20.9 Acute bronchitis, unspecified; I10 Essential (primary) hypertension; F41.9 Anxiety disorder, unspecified; F33.1 Major depressive disorder, recurrent, moderate; Z22.7 Latent tuberculosis
CPT/HCPCS: 80053; 85025

== ENCOUNTER → 2022-02-24 17:13 | Outpatient (CLI) | payer MEDICARE, OTHER, SELFPAY ==
[2022-02-24 17:42] LABS: Basophils # 0.1 K/mm3 (0-0.2); Basophils % 1.6 % (0.1-2.0); Eosinophils # 0.3 K/mm3 (0.0-0.4); Eosinophils % 4.5 % (0.1-12.0); Hemoglobin 12.7 g/dL (12.2-16.2); Lymphocytes # 2.7 K/mm3 (0.7-4.5); Lymphocytes % 38.9 % (10-50); Mean Corpuscular HGB Conc 32.6 g/dL (31.8-35.4); Mean Corpuscular Hemoglobin 29.7 pg (27.0-31.2); Mean Corpuscular Volume 91.3 fl (81-99); Mean Platelet Volume 9.3 fl (7.4-10.4); Monocytes # 0.5 K/mm3 (0.1-1.0); Monocytes % 7.8 % (1.7-9.3); Neutrophils # 3.2 K/mm3 (1.8-7.8); Neutrophils % 47.3 % (37.0-80.0); Platelet Count 277 K/mm3 (142-424); Red Blood Count 4.27 M/mm3 (4.20-5.40); White Blood Count 6.9 K/mm3 (4.8-10.8)
[2022-02-24 19:25] LABS: Alanine Aminotransferase 15 U/L (12-78); Albumin Level 4.6 g/dl (3.5-5.0); Albumin/Globulin Ratio 1.6 (1.1-1.8); Alkaline Phosphatase 133 U/L (38-126); Anion Gap 17.5 mEq/L (5-15); Aspartate Amino Transferase 32 U/L (14-36); Bilirubin,Total 0.3 mg/dl (0.2-1.3); Blood Urea Nitrogen 16 mg/dl (7-17); Calcium 9.3 mg/dl (8.4-10.2); Carbon Dioxide 26 mmol/L (22.0-30.0); Chloride 98 mmol/L (98-107); Estimated Glomerular Filt Rate 66 ml/min (>60); GFR (African American) 80 ML/MIN (>60); Globulin 2.9 g/dL (1.3-3.2); Glucose 85 mg/dl (74-100); Potassium 4.5 mmoL/L (3.5-5.1); Sodium 137 mmol/L (136-145); Total Protein,Serum 7.5 g/dl (6.3-8.2)
== END ==
PROVIDERS: PCP Internal Medicine; Visit Provider Internal Medicine
DX: Z22.7 Latent tuberculosis (principal); I87.2 Venous insufficiency (chronic) (peripheral); I10 Essential (primary) hypertension
CPT/HCPCS: 80053; 85025

== ENCOUNTER → 2022-03-27 17:09 | Outpatient (CLI) | payer MEDICARE, OTHER, SELFPAY ==
[2022-03-27 19:30] LABS: Basophils # 0.1 K/mm3 (0-0.2); Basophils % 1.4 % (0.1-2.0); Eosinophils # 0.4 K/mm3 (0.0-0.4); Eosinophils % 4.2 % (0.1-12.0); Hematocrit 36.7 % (37.0-47.0); Hemoglobin 12.2 g/dL (12.2-16.2); Lymphocytes # 3.7 K/mm3 (0.7-4.5); Lymphocytes % 40.4 % (10-50); Mean Corpuscular HGB Conc 33.3 g/dL (31.8-35.4); Mean Corpuscular Hemoglobin 29.4 pg (27.0-31.2); Mean Corpuscular Volume 88.2 fl (81-99); Mean Platelet Volume 9.9 fl (7.4-10.4); Monocytes # 0.7 K/mm3 (0.1-1.0); Monocytes % 7.8 % (1.7-9.3); Neutrophils # 4.2 K/mm3 (1.8-7.8); Neutrophils % 46.2 % (37.0-80.0); Platelet Count 291 K/mm3 (142-424); Red Blood Count 4.17 M/mm3 (4.20-5.40); Red Cell Distribution Width 13.4 % (11.5-17.5); White Blood Count 9.2 K/mm3 (4.8-10.8)
[2022-03-27 19:57] LABS: Chloride 98 mmol/L (98-107)
[2022-03-27 19:58] LABS: Potassium 4.5 mmoL/L (3.5-5.1); Sodium 135 mmol/L (136-145)
[2022-03-27 20:00] LABS: Alanine Aminotransferase 14 U/L (12-78); Aspartate Amino Transferase 34 U/L (14-36); Blood Urea Nitrogen 24 mg/dl (7-17); Estimated Glomerular Filt Rate 39 ml/min (>60); GFR (African American) 48 ML/MIN (>60)
[2022-03-27 20:01] LABS: Albumin Level 4.4 g/dl (3.5-5.0); Albumin/Globulin Ratio 1.6 (1.1-1.8); Alkaline Phosphatase 119 U/L (38-126); Anion Gap 12.5 mEq/L (5-15); Bilirubin,Total 0.3 mg/dl (0.2-1.3); Calcium 9.3 mg/dl (8.4-10.2); Carbon Dioxide 29 mmol/L (22.0-30.0); Globulin 2.8 g/dL (1.3-3.2); Glucose 86 mg/dl (74-100); Total Protein,Serum 7.2 g/dl (6.3-8.2)
== END ==
PROVIDERS: PCP Internal Medicine; Visit Provider Internal Medicine
DX: F41.9 Anxiety disorder, unspecified (principal); I87.2 Venous insufficiency (chronic) (peripheral); J44.9 Chronic obstructive pulmonary disease, unspecified; E66.01 Morbid (severe) obesity due to excess calories; Z68.41 Body mass index [BMI] 40.0-44.9, adult; Z22.7 Latent tuberculosis
CPT/HCPCS: 80053; 85025

== ENCOUNTER → 2022-04-28 17:37 | Outpatient (CLI) | payer MEDICARE, OTHER, SELFPAY ==
[2022-04-28 18:45] LABS: Basophils # 0.1 K/mm3 (0-0.2); Basophils % 1.6 % (0.1-2.0); Eosinophils # 0.2 K/mm3 (0.0-0.4); Eosinophils % 3.7 % (0.1-12.0); Hematocrit 41.8 % (37.0-47.0); Lymphocytes # 2.2 K/mm3 (0.7-4.5); Lymphocytes % 36.6 % (10-50); Mean Corpuscular HGB Conc 33.5 g/dL (31.8-35.4); Mean Corpuscular Volume 89.7 fl (81-99); Mean Platelet Volume 9.9 fl (7.4-10.4); Monocytes # 0.4 K/mm3 (0.1-1.0); Monocytes % 7.2 % (1.7-9.3); Neutrophils # 3.1 K/mm3 (1.8-7.8); Neutrophils % 50.9 % (37.0-80.0); Platelet Count 270 K/mm3 (142-424); Red Blood Count 4.66 M/mm3 (4.20-5.40); Red Cell Distribution Width 13.9 % (11.5-17.5)
[2022-04-28 19:05] LABS: Alanine Aminotransferase 15 U/L (12-78); Albumin Level 4.4 g/dl (3.5-5.0); Albumin/Globulin Ratio 1.4 (1.1-1.8); Alkaline Phosphatase 90 U/L (38-126); Anion Gap 12.1 mEq/L (5-15); Aspartate Amino Transferase 30 U/L (14-36); Bilirubin,Total 0.4 mg/dl (0.2-1.3); Blood Urea Nitrogen 13 mg/dl (7-17); Calcium 9.2 mg/dl (8.4-10.2); Carbon Dioxide 28 mmol/L (22.0-30.0); Chloride 101 mmol/L (98-107); Estimated Glomerular Filt Rate 88 ml/min (>60); GFR (African American) 106 ML/MIN (>60); Globulin 3.1 g/dL (1.3-3.2); Glucose 90 mg/dl (74-100); Potassium 4.1 mmoL/L (3.5-5.1); Sodium 137 mmol/L (136-145); Total Protein,Serum 7.5 g/dl (6.3-8.2)
== END ==
PROVIDERS: PCP Internal Medicine; Visit Provider Internal Medicine
DX: J44.9 Chronic obstructive pulmonary disease, unspecified (principal); I87.2 Venous insufficiency (chronic) (peripheral); Z22.7 Latent tuberculosis
CPT/HCPCS: 80053; 85025

== ENCOUNTER → 2022-05-31 16:50 | Outpatient (CLI) | payer MEDICARE, OTHER, SELFPAY ==
[2022-05-31 17:15] LABS: Basophils # 0.1 K/mm3 (0-0.2); Basophils % 1.2 % (0.1-2.0); Eosinophils # 0.2 K/mm3 (0.0-0.4); Eosinophils % 4.4 % (0.1-12.0); Hematocrit 38.7 % (37.0-47.0); Hemoglobin 12.4 g/dL (12.2-16.2); Lymphocytes # 2.2 K/mm3 (0.7-4.5); Lymphocytes % 40.9 % (10-50); Mean Corpuscular HGB Conc 32.1 g/dL (31.8-35.4); Mean Corpuscular Hemoglobin 29.4 pg (27.0-31.2); Mean Corpuscular Volume 91.6 fl (81-99); Mean Platelet Volume 9.4 fl (7.4-10.4); Monocytes # 0.4 K/mm3 (0.1-1.0); Monocytes % 6.8 % (1.7-9.3); Neutrophils # 2.5 K/mm3 (1.8-7.8); Neutrophils % 46.9 % (37.0-80.0); Platelet Count 206 K/mm3 (142-424); Red Blood Count 4.23 M/mm3 (4.20-5.40); White Blood Count 5.3 K/mm3 (4.8-10.8)
[2022-05-31 17:58] LABS: Alanine Aminotransferase 15 U/L (12-78); Albumin/Globulin Ratio 1.4 (1.1-1.8); Alkaline Phosphatase 95 U/L (38-126); Aspartate Amino Transferase 30 U/L (14-36); Bilirubin,Total 0.4 mg/dl (0.2-1.3); Blood Urea Nitrogen 11 mg/dl (7-17); Calcium 8.6 mg/dl (8.4-10.2); Carbon Dioxide 29 mmol/L (22.0-30.0); Chloride 103 mmol/L (98-107); Estimated Glomerular Filt Rate 75 ml/min (>60); GFR (African American) 91 ML/MIN (>60); Globulin 2.8 g/dL (1.3-3.2); Glucose 102 mg/dl (74-100); Sodium 135 mmol/L (136-145); Total Protein,Serum 6.8 g/dl (6.3-8.2)
== END ==
PROVIDERS: PCP Internal Medicine; Visit Provider Internal Medicine
DX: I10 Essential (primary) hypertension (principal); J44.9 Chronic obstructive pulmonary disease, unspecified; F41.9 Anxiety disorder, unspecified; F17.209 Nicotine dependence, unspecified, with unspecified nicotine-induced disorders; F33.1 Major depressive disorder, recurrent, moderate; I87.2 Venous insufficiency (chronic) (peripheral); E66.01 Morbid (severe) obesity due to excess calories; Z22.7 Latent tuberculosis
CPT/HCPCS: 80053; 85025

== ENCOUNTER → 2022-07-28 16:46 | Outpatient (CLI) | payer MEDICARE, OTHER, SELFPAY ==
[2022-07-28 17:36] LABS: Chloride 103 mmol/L (98-107); Potassium 4.5 mmoL/L (3.5-5.1); Sodium 137 mmol/L (136-145)
[2022-07-28 17:38] LABS: Alanine Aminotransferase 14 U/L (12-78); Aspartate Amino Transferase 31 U/L (14-36); Blood Urea Nitrogen 8 mg/dl (7-17); Estimated Glomerular Filt Rate 88 ml/min (>60); GFR (African American) 106 ML/MIN (>60)
[2022-07-28 17:39] LABS: Albumin Level 3.9 g/dl (3.5-5.0); Albumin/Globulin Ratio 1.3 (1.1-1.8); Alkaline Phosphatase 105 U/L (38-126); Anion Gap 8.5 mEq/L (5-15); Bilirubin,Total 0.4 mg/dl (0.2-1.3); Carbon Dioxide 30 mmol/L (22.0-30.0); Globulin 2.9 g/dL (1.3-3.2); Glucose 94 mg/dl (74-100); Total Protein,Serum 6.8 g/dl (6.3-8.2)
[2022-07-28 17:45] LABS: Basophils # 0.1 K/mm3 (0-0.2); Eosinophils # 0.1 K/mm3 (0.0-0.4); Eosinophils % 2.6 % (0.1-12.0); Hematocrit 39.4 % (37.0-47.0); Hemoglobin 12.5 g/dL (12.2-16.2); Lymphocytes # 1.7 K/mm3 (0.7-4.5); Lymphocytes % 35.1 % (10-50); Mean Corpuscular HGB Conc 31.8 g/dL (31.8-35.4); Mean Corpuscular Hemoglobin 28.8 pg (27.0-31.2); Mean Corpuscular Volume 90.6 fl (81-99); Mean Platelet Volume 8.8 fl (7.4-10.4); Monocytes # 0.4 K/mm3 (0.1-1.0); Monocytes % 8.3 % (1.7-9.3); Neutrophils # 2.6 K/mm3 (1.8-7.8); Neutrophils % 53.1 % (37.0-80.0); Platelet Count 252 K/mm3 (142-424); Red Blood Count 4.35 M/mm3 (4.20-5.40); Red Cell Distribution Width 14.2 % (11.5-17.5); White Blood Count 4.9 K/mm3 (4.8-10.8)
== END ==
PROVIDERS: PCP Internal Medicine; Visit Provider Internal Medicine
DX: I10 Essential (primary) hypertension (principal); I87.2 Venous insufficiency (chronic) (peripheral); J44.9 Chronic obstructive pulmonary disease, unspecified; E66.01 Morbid (severe) obesity due to excess calories; Z22.7 Latent tuberculosis
CPT/HCPCS: 80053; 85025

== ENCOUNTER → 2022-08-23 17:10 | Outpatient (CLI) | payer MEDICARE, OTHER, SELFPAY ==
[2022-08-23 18:43] LABS: Basophils % 0.6 % (0.1-2.0); Eosinophils # 0.3 K/mm3 (0.0-0.4); Eosinophils % 3.8 % (0.1-12.0); Hematocrit 37.8 % (37.0-47.0); Hemoglobin 12.3 g/dL (12.2-16.2); Lymphocytes # 2.8 K/mm3 (0.7-4.5); Lymphocytes % 40.3 % (10-50); Mean Corpuscular HGB Conc 32.5 g/dL (31.8-35.4); Mean Corpuscular Hemoglobin 29.5 pg (27.0-31.2); Mean Corpuscular Volume 90.8 fl (81-99); Mean Platelet Volume 9.2 fl (7.4-10.4); Monocytes # 0.6 K/mm3 (0.1-1.0); Monocytes % 8.5 % (1.7-9.3); Neutrophils # 3.2 K/mm3 (1.8-7.8); Neutrophils % 46.8 % (37.0-80.0); Platelet Count 274 K/mm3 (142-424); Red Blood Count 4.16 M/mm3 (4.20-5.40); Red Cell Distribution Width 14.4 % (11.5-17.5); White Blood Count 6.8 K/mm3 (4.8-10.8)
[2022-08-23 20:18] LABS: Alanine Aminotransferase 16 U/L (12-78); Albumin Level 3.9 g/dl (3.5-5.0); Albumin/Globulin Ratio 1.3 (1.1-1.8); Alkaline Phosphatase 114 U/L (38-126); Anion Gap 13.8 mEq/L (5-15); Aspartate Amino Transferase 34 U/L (14-36); Bilirubin,Total 0.4 mg/dl (0.2-1.3); Blood Urea Nitrogen 22 mg/dl (7-17); Calcium 8.8 mg/dl (8.4-10.2); Carbon Dioxide 32 mmol/L (22.0-30.0); Chloride 91 mmol/L (98-107); Estimated Glomerular Filt Rate 66 ml/min (>60); GFR (African American) 80 ML/MIN (>60); Globulin 2.9 g/dL (1.3-3.2); Glucose 120 mg/dl (74-100); Potassium 4.8 mmoL/L (3.5-5.1); Sodium 132 mmol/L (136-145); Total Protein,Serum 6.8 g/dl (6.3-8.2)
== END ==
PROVIDERS: PCP Internal Medicine; Visit Provider Internal Medicine
DX: I10 Essential (primary) hypertension (principal); J44.9 Chronic obstructive pulmonary disease, unspecified; L03.116 Cellulitis of left lower limb; L03.115 Cellulitis of right lower limb; E66.01 Morbid (severe) obesity due to excess calories; Z22.7 Latent tuberculosis
CPT/HCPCS: 80053; 85025